=== PATIENT | female | born 1995 | race Caucasian/White ===

== ENCOUNTER → 2018-04-16 | Outpatient (CLI) | payer OTHER ==
--- NOTE | 2018-04-16 14:32 | Diagnostic Imaging Report ---
INDICATION: Size dates discrepancy. TECHNIQUE: Multiple real-time grayscale images were obtained over the gravid uterus. COMPARISON: None. FINDINGS: There are no prior studies available for comparison. FINDINGS: There is a single live fetus in cephalic presentation. heart motion was noted and a rate of 132 BPM was recorded. There were no abnormalities identified but the fetus was difficult to evaluate as there is mild oligohydramnios. The amniotic fluid index is 6.7 cm (8 to 22 cm). The reason for the oligohydramnios is not certain. There is no obvious abnormality identified. The growth parameters average at 34 weeks 6 days +/-3.5 weeks. The placenta is posterior and there is no previa. IMPRESSION: 1. There is a near-term fetus in cephalic presentation. The EDC is May 15, 2018. 2. There were no obvious abnormalities identified. However, the evaluation of the fetus is limited due to the diminished amniotic fluid volume. The reason for the oligohydramnios is not certain. Biometrical measurements are as follows: Biparietal 8.87 cm, age 36 weeks 0 days. Head circumference 31.80 cm, age 35 weeks 6 days. Abdominal circumference 33.20 cm, age 37 weeks 1 days. Femur length 6.63 cm, age 34 weeks 1 days. Sonographic estimate age: 35 weeks 6 days. Sonographic estimated date of delivery: 05/15/18. Estimated Weight: 2847 gm (+/- 416 gm). LMP percentile: NA%. heart rate: 132 beats per minute. number: 1 of 1. Dictated by: Dictated on workstation # [id number]
== END ==
LOC: RAD 12:47
PROVIDERS: ATTEND Obstetrics & Gynecology
DX: O26.843 Uterine size-date discrepancy, third trimester (principal); Z3A.35 35 weeks gestation of pregnancy
CPT/HCPCS: 76805

== ENCOUNTER 2018-05-15 03:55 | Inpatient (IN) | payer OTHER ==
[2018-05-15] VITALS (59 sets, daily range): BP systolic 118–162; BP diastolic 68–91
[~2018-05-15] VITALS: Ht 176.5 cm; Wt 92.1 kg
[2018-05-15] MEDS: D5 LR IV SOLUTION 1,000 ML IV SCH ×3 (04:12→12:58)
[2018-05-15 04:23] LABS: COLOR,URINE AMBER; GLUCOSE, URINE (UA) NEGATIVE (NEGATIVE); KETONES,URINE 3+ (NEGATIVE); LEUKOCYTE ESTERASE ,URINE 3+ (NEGATIVE); NITRITE,URINE NEGATIVE (NEGATIVE); PH,URINE 6.5 (5-9); PROTEIN,URINE 2+ (NEGATIVE); UROBILINOGEN,URINE 4 MG/DL (NORMAL)
[2018-05-15 04:29] LABS: BASOPHILS % (AUTO) 0 % (0-10); EOSINOPHILS # (AUTO) 0.1 10^3/uL (0.0-0.3); EOSINOPHILS % (AUTO) 1 % (0-10); HEMATOCRIT 33 % (35-52); HEMOGLOBIN 11.9 G/DL (11.5-16.0); LYMPHOCYTES # (AUTO) 1.8 X 10^3 (1.0-4.0); LYMPHOCYTES % (AUTO) 15 % (12-44); MEAN CORPUSCULAR HEMOGLOBIN 31 PG (25-34); MEAN CORPUSCULAR HGB CONC 36 G/DL (32-36); MEAN CORPUSCULAR VOLUME 85 FL (80-99); MEAN PLATELET VOLUME 9.3 FL (7.4-10.4); MONOCYTES # (AUTO) 0.7 X 10^3 (0.0-1.0); MONOCYTES % (AUTO) 6 % (0-12); NEUTROPHILS # (AUTO) 9.3 X 10^3 (1.8-7.8); NEUTROPHILS % (AUTO) 78 % (42-75); PLATELET COUNT 433 10^3/uL (130-400); RED BLOOD COUNT 3.83 10^6/uL (4.35-5.85); RED CELL DISTRIBUTION WIDTH 13.1 % (10.0-14.5); WHITE BLOOD COUNT 11.9 10^3/uL (4.3-11.0)
[2018-05-15 04:32] LABS: BILIRUBIN,URINE 1+ (NEGATIVE)
[2018-05-15 04:33] LABS: CLARITY,URINE SLIGHTLY CLOUDY
[2018-05-15 04:35] LABS: AMPHETAMINE SCREEN, URINE NEGATIVE (NEGATIVE); BACTERIA,URINE MODERATE /HPF; BARBITURATE SCREEN URINE NEGATIVE (NEGATIVE); BENZODIAZEPINES SCREEN URINE NEGATIVE (NEGATIVE); CANNABINOID SCREEN, URINE NEGATIVE (NEGATIVE); COCAINE SCREEN URINE NEGATIVE (NEGATIVE); METHADONE STAT NEGATIVE (NEGATIVE); METHAMPHETAMINE SCREEN URINE S NEGATIVE (NEGATIVE); OPIATE SCREEN URINE NEGATIVE (NEGATIVE); OXYCODONE STAT NEGATIVE (NEGATIVE); PROPOXYPHENE STAT NEGATIVE (NEGATIVE); TRICYCLIC ANTIDEPRESSANTS SCRE NEGATIVE (NEGATIVE); WBC,URINE >100 /HPF
[2018-05-15 05:23] LABS: ALANINE AMINOTRANSFERASE 31 U/L (0-55); ALBUMIN 3.1 GM/DL (3.2-4.5); ALKALINE PHOSPHATASE 535 U/L (40-136); BILIRUBIN,TOTAL 1.6 MG/DL (0.1-1.0); BUN/CREATININE RATIO 9; CALCIUM 9.4 MG/DL (8.5-10.1); CARBON DIOXIDE 14 MMOL/L (21-32); CHLORIDE 108 MMOL/L (98-107); CREATININE SERUM 0.69 MG/DL (0.60-1.30); GFR ESTIMATED > 60; GLUCOSE 110 MG/DL (70-105); POTASSIUM 3.2 MMOL/L (3.6-5.0); SODIUM 136 MMOL/L (135-145); TOTAL PROTEIN 7.4 GM/DL (6.4-8.2)
[2018-05-15] MEDS ORDERED: BUTORPHANOL INJ 2 MG/ML (STADOL) VIAL ONE (05:52)
[2018-05-15] MEDS ORDERED: BUTORPHANOL INJ 2 MG/ML (STADOL) VIAL IV ONE (06:00)
[2018-05-15] MEDS: CATHETER FLUSH 10 ML SYR IV SCH (06:47)
[2018-05-15 07:47] LABS: INR 0.9 (0.8-1.4); PROTHROMBIN TIME PATIENT 12.5 SEC (12.2-14.7)
[2018-05-15] MEDS ORDERED: SUFENTA 0.6MCG/ML BUPIVA 0.125 100 ML ONE (08:19)
[2018-05-15] MEDS ORDERED: LIDOCAINE/EPI 2% 1:200,00 (XYLOCAINE) 10 ML VIAL ONE (08:20)
[2018-05-15] MEDS ORDERED: OXYTOCIN/NORMAL SALINE 500 ML IV ONE ×2 (08:20→14:30)
[2018-05-15] MEDS ORDERED: MINERAL OIL CONCENTRATE 99.9% 15 ML UDC ONE (08:21)
[2018-05-15] MEDS ORDERED: fentaNYL INJECTION 100 MCG/2 ML AMP ONE (08:22)
--- NOTE | 2018-05-15 08:42 | History & Physical-OB ---
OB - Chief Complaint & HPI Date/Time Date of Admission: Date of Admission: May 15, 2018 at 4:12 am Time Seen by Provider: 07:15 Chief Complaint/History OB-Reason for Admission/Chief: Onset of Labor Hx : 1 Hx Para: 0 Expected Date of Delivery: May 23, 2018 Gestational Age in Weeks: 38 Gestational Age in Days: 6 Admission Nurse Assessment Rev: Yes History of Labs A neg Antibody screen neg RI RPR NR HBsAg NR HIV NR GC neg GBS neg Progenity FFC DNA neg, Carrier screen neg Allergies and Home Medications Allergies Coded Allergies: neff (Verified Allergy, Unknown, 05/15/18) quetiapine (Verified Allergy, Unknown, 05/15/18) Home Medications No Active Prescriptions or Reported Meds Patient Home Medication List Home Medication List Reviewed: Yes OB - History Hx of Present Care: Yes Ultrasounds: Normal mid trimester US Obstetrical Complications: None Medical Complications: None Other Concerns: Late transfer of care Obstetrical History Hx : 1 Hx Para: 0 Hx Total # of Abortions (Spona: 0 Delivery History Adverse Rxn to Tranfusion: No (no blood transfusions) Patient Past Medical History Depression/Anx PTSD Eating disorder Social History/Family History Recent Infectious Disease Expo: No Alcohol Use: Denies Use Recreational Drug Use: No OB - Admission Exam Physical Exam Vitals: Vital Signs 05/15/18 04:05 Temp 97.3 Pulse 86 Resp 20 B/P (MAP) 130/83 (99) HEENT: NCAT Heart: Rhythm Normal Lungs: Clear Abdomen: Gravid Extremities: Normal Reflexes: Normal Cervical Dilatation: 4cm Effacement: 75% Station: -1 Membranes: Intact Heart Rate: 130's Accelerations: Accelerations Present Decelerations: No Decelerations Short Term Variability: Present Bottle Caser Variability: Average (6-25) Contractions on Admission: < 5 Minutes Apart Intensity: Firm Labs Laboratory Tests Test 05/15/18 04:15 05/15/18 05:45 05/15/18 07:30 Range/Units White Blood Count 11.9 H 4.3-11.0 10^3/uL Red Blood Count 3.83 L 4.35-5.85 10^6/uL Hemoglobin 11.9 11.5-16.0 G/DL Hematocrit 33 L 35-52 % Mean Corpuscular Volume 85 80-99 FL Mean Corpuscular Hemoglobin 31 25-34 PG Mean Corpuscular Hemoglobin Concent 36 32-36 G/DL Red Cell Distribution Width 13.1 10.0-14.5 % Platelet Count 433 H 130-400 10^3/uL Mean Platelet Volume 9.3 7.4-10.4 FL Neutrophils (%) (Auto) 78 H 42-75 % Lymphocytes (%) (Auto) 15 12-44 % Monocytes (%) (Auto) 6 0-12 % Eosinophils (%) (Auto) 1 0-10 % Basophils (%) (Auto) 0 0-10 % Neutrophils # (Auto) 9.3 H 1.8-7.8 X 10^3 Lymphocytes # (Auto) 1.8 1.0-4.0 X 10^3 Monocytes # (Auto) 0.7 0.0-1.0 X 10^3 Eosinophils # (Auto) 0.1 0.0-0.3 10^3/uL Basophils # (Auto) 0.0 0.0-0.1 10^3/uL Urine Color MELISSA H Urine Clarity SLIGHTLY CLOUDY Urine pH 6.5 5-9 Urine Specific [place] 1.015 L 1.016-1.022 Urine Protein 2+ H NEGATIVE Urine Glucose (UA) NEGATIVE NEGATIVE Urine Ketones 3+ H NEGATIVE Urine Nitrite NEGATIVE NEGATIVE Urine Bilirubin 1+ H NEGATIVE Urine Urobilinogen 4 H NORMAL MG/DL Urine Leukocyte Esterase 3+ H NEGATIVE Urine RBC (Auto) 4+ H NEGATIVE Urine RBC 5-10 H /HPF Urine WBC >100 H /HPF Urine Squamous Epithelial Cells 5-10 /HPF Urine Crystals NONE /LPF Urine Bacteria MODERATE H /HPF Urine Casts NONE /LPF Urine Mucus MODERATE H /LPF Urine Culture Indicated YES Sodium Level 136 135-145 MMOL/L Potassium Level 3.2 L 3.6-5.0 MMOL/L Chloride Level 108 H 98-107 MMOL/L Carbon Dioxide Level 14 L 21-32 MMOL/L Anion Gap 14 5-14 MMOL/L Blood Urea Nitrogen 6 L 7-18 MG/DL Creatinine 0.69 0.60-1.30 MG/DL Estimat Glomerular Filtration Rate > 60 BUN/Creatinine Ratio 9 Glucose Level 110 H 70-105 MG/DL Calcium Level 9.4 8.5-10.1 MG/DL Total Bilirubin 1.6 H 0.1-1.0 MG/DL Aspartate Amino Transf (AST/SGOT) 30 5-34 U/L Alanine Aminotransferase (ALT/SGPT) 31 0-55 U/L Alkaline Phosphatase 535 H 40-136 U/L Total Protein 7.4 6.4-8.2 GM/DL Albumin 3.1 L 3.2-4.5 GM/DL Urine Opiates Screen NEGATIVE NEGATIVE Urine Oxycodone Screen NEGATIVE NEGATIVE Urine Methadone Screen NEGATIVE NEGATIVE Urine Propoxyphene Screen NEGATIVE NEGATIVE Urine Barbiturates Screen NEGATIVE NEGATIVE Ur Tricyclic Antidepressants Screen NEGATIVE NEGATIVE Urine Phencyclidine Screen NEGATIVE NEGATIVE Urine Amphetamines Screen NEGATIVE NEGATIVE Urine Methamphetamines Screen NEGATIVE NEGATIVE Urine Benzodiazepines Screen NEGATIVE NEGATIVE Urine Cocaine Screen NEGATIVE NEGATIVE Urine Cannabinoids Screen NEGATIVE NEGATIVE Prothrombin Time 12.5 12.2-14.7 SEC INR Comment 0.9 0.8-1.4 OB - Assessment/Plan/Diagnosis Assessment Assessment: active labor Admission Dx 23 yo @ 38.6 Active labor GBS neg Late transfer of care Admission Status: Inpatient Order (span 2 midnights) Reason for Inpatient Admission: Active labor Plan Plan: Expectant Management Other Plan Patient and friend today give a history of "hemophilia", however records and carrier screening are reviewed without any mention of this in the past. Patient relates today that she was told by her mother when she was younger, but was also told that she may "grow out of it." MARY KAUFMAN DO May 15, 2018 8:42 am
[2018-05-15] MEDS ORDERED: LACTATED RINGERS 1,000 ML IV ONE ×2 (09:02)
[2018-05-15] MEDS ORDERED: LIDOCAINE PF 2% 5 ML (XYLOCAINE) VIAL ONE ×2 (09:05→12:11)
[2018-05-15] MEDS ORDERED: BUPIVACAINE 0.25% 30 ML (SENSORCAINE) VIAL ONE ×2 (09:05→12:11)
[2018-05-15] MEDS ORDERED: NALOXONE 0.4 MG/ML 1 ML (NARCAN) VIAL IV PRN (09:15)
[2018-05-15] MEDS ORDERED: ONDANSETRON 4 MG/2 ML (SDV) Z0FRAN IV PRN (09:15)
[2018-05-15] MEDS ORDERED: EPIDURAL (SUFENTA 0.6MCG/ML BUPIVA 0.125%) 100 ML BAG EPI PRN (09:15)
[2018-05-15] MEDS ORDERED: LIDOCAINE/EPI 2% 1:200,00 (XYLOCAINE) 10 ML VIAL INJ ONE (13:30)
[2018-05-15] MEDS: OXYTOCIN/NORMAL SALINE 500 ML IV SCH ×2 (13:58→14:32)
[2018-05-15] MEDS ORDERED: METHYLERGONOVINE 0.2 MG/ML (METHERGINE) AMP ONE (14:00)
[2018-05-15] MEDS ORDERED: IBUPROFEN 600 MG (MOTRIN) TAB PO ONE (14:44)
[2018-05-15] MEDS ORDERED: DIBUCAINE (NUPERCAINAL) 1% OINT 30 GM TOP PRN (14:45)
[2018-05-15] MEDS ORDERED: IBUPROFEN 600 MG (MOTRIN) TAB PO SCH (14:45)
[2018-05-15] MEDS ORDERED: HYDROcodone/APAP 5 MG/325 MG (LORTAB) TAB PO PRN (14:45)
[2018-05-15] MEDS ORDERED: WITCH HAZEL(TUCKS) 40 EA JAR TOP PRN (14:45)
[2018-05-15] MEDS ORDERED: MEASLES,MUMPS,RUBELLA 1 EA INJ SQ ONE (14:45)
[2018-05-15] MEDS ORDERED: BENZOCAINE/MENTHOL (DERMOPLAST) 56 ML CAN TP PRN (14:45)
[2018-05-15] MEDS ORDERED: TETANUS,DIPTH,PERTUSS P/F (BOOSTRIX) 0.5 ML VIAL IM ONE (14:45)
[2018-05-15] MEDS ORDERED: IBUP-844 PO (14:47)
[2018-05-15] MEDS ORDERED: DIBU30OI TOP (14:47)
[2018-05-15] MEDS ORDERED: FERR325T18 PO (14:47)
[2018-05-15] MEDS ORDERED: DOCU100C37 PO (14:47)
[2018-05-15] MEDS ORDERED: ACHD5005 PO (14:47)
--- NOTE | 2018-05-15 14:47 | Discharge Inst-Women's Service ---
Discharge Inst-Women's Serv Depart Medication/Instructions New, Converted or Re-Newed RX: RX on Chart Consults/Follow Up Additional Follow Up: Yes Orders/Referrals Dr. Haji in 6 weeks Activity Activity: Activity as Tolerated Driving Instructions: No Driving for 1 Week NO SMOKING: NO SMOKING Nothing Inside Vagina: No Douching, No [place], No Tampons Diet Discharge Diet: No Restrictions Symptoms to Report to : Bleeding Excessive, Pain Increased, Fever Over 101 Degrees F, Vaginal Bleeding Increase, Questions/Concerns For Any Problems or Questions: Contact Your Physician Skin/Wound Care Bathing Instructions: Shower (or sitz baths x 2 weeks) MARY KAUFMAN DO May 15, 2018 2:47 pm
[2018-05-15] MEDS ORDERED: METHYLERGONOVINE 0.2 MG/ML (METHERGINE) AMP IM ONE (15:15)
[2018-05-15] MEDS ORDERED: BENZOCAINE/MENTHOL (DERMOPLAST) 56 ML CAN TP ONE (15:28)
[2018-05-15] MEDS ORDERED: DIBUCAINE (NUPERCAINAL) 1% OINT 30 GM ONE (15:29)
[2018-05-15] MEDS ORDERED: WITCH HAZEL(TUCKS) 40 EA JAR ONE (15:29)
--- NOTE | 2018-05-15 17:20 | OB Labor & Delivery Record ---
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 Variability: Average (6-10) Short Term Variability: Present Presentation: Vertex Vital Signs VS - Last 72 Hours, by Label 05/15/18 05/15/18 05/15/18 05/15/18 04:05 05:35 07:30 08:00 Temp 97.3 97.4 98.1 Pulse 86 80 69 82 Resp 20 18 18 18 B/P (MAP) 130/83 (99) 128/80 (96) 139/85 (103) Pulse Ox 98 O2 Delivery Room Air Room Air 05/15/18 05/15/18 05/15/18 05/15/18 08:30 08:41 08:44 08:45 Pulse 82 79 69 80 Resp 18 18 18 18 B/P (MAP) 127/76 (93) 137/88 (104) 132/82 (99) 130/79 (96) Pulse Ox 99 98 99 97 O2 Delivery Room Air Room Air Room Air Room Air 05/15/18 05/15/18 05/15/18 05/15/18 08:50 08:53 08:56 09:00 Pulse 75 77 63 67 Resp 18 18 18 18 B/P (MAP) 121/72 (88) 128/75 (92) 124/80 (95) 126/81 (96) Pulse Ox 100 100 100 100 O2 Delivery Non Rebreather Non Rebreather Non Rebreather Non Rebreather O2 Flow Rate 15.00 15.00 15.00 15.00 05/15/18 05/15/18 05/15/18 05/15/18 09:02 09:05 09:08 09:11 Pulse 69 72 83 69 Resp 18 18 18 18 B/P (MAP) 127/86 (100) 127/71 (89) 132/72 (92) 128/71 (90) Pulse Ox 100 100 100 100 O2 Delivery Non Rebreather Non Rebreather Non Rebreather Non Rebreather O2 Flow Rate 15.00 15.00 15.00 15.00 05/15/18 05/15/18 05/15/18 05/15/18 09:15 09:17 09:20 09:23 Pulse 71 65 78 71 Resp 18 18 18 18 B/P (MAP) 127/73 (91) 134/80 (98) 128/79 (95) 127/77 (94) Pulse Ox 100 100 100 100 O2 Delivery Non Rebreather Non Rebreather Non Rebreather Non Rebreather O2 Flow Rate 15.00 15.00 15.00 15.00 05/15/18 05/15/18 05/15/18 05/15/18 09:26 09:30 09:33 09:36 Pulse 82 77 75 67 Resp 18 18 18 18 B/P (MAP) 127/79 (95) 134/81 (98) 128/76 (93) 125/73 (90) Pulse Ox 100 100 100 100 O2 Delivery Non Rebreather Non Rebreather Non Rebreather Non Rebreather O2 Flow Rate 15.00 15.00 15.00 15.00 05/15/18 05/15/18 05/15/18 05/15/18 09:38 09:41 09:45 10:00 Temp 98.1 Pulse 68 68 70 81 Resp 18 18 18 18 B/P (MAP) 128/72 (90) 127/79 (95) 125/78 (94) 125/81 (96) Pulse Ox 100 100 100 99 O2 Delivery Non Rebreather Non Rebreather Non Rebreather Non Rebreather O2 Flow Rate 15.00 15.00 15.00 15.00 Rupture of Membranes Spontaneous Ruture of Membrane: Yes Amniotic Membrane Rupture Time: 0200 Amniotic Membrane Fluid Desc.: Clear Amniotic Fluid Membrane Tests: Nitrazine Positive Vaginal Bleeding Description: Normal Show Induction/Anesthesia Epidural Cath Placement - Time: 0840 Progress/Notes Patient progressed without augmentation. Epidural was received for analgesia. L&D Stage2 Stage Two Stage II Date: May 15, 2018 Monitors and Tracing Monitor Mode: External Heart Rate: 110 Monitor Accelerations: Uniform Monitor Decelerations: Variable Snf Variability: Average (6-10) Short Term Variability: Present Position: Right Occiput Anterior Presentation: Vertex Cord Descript/Complications Cord Vessel Description: 3 Vessels Delivery Type Anterior Shoulder: Right Episiotomy/Perineal Laceration Laceraction(s)/Extensions: Yes Episiotomy Description: Right Mediolateral Degree (describe repair) RML repaired in usual fashion using 3-0 and 2-0 vicryl suture Condition of Infant Delivery 1 minute Comment: 8 5 minute Comment: 9 Condition of Infant Condition of : Living Exam: No Observed Abnormalities Live male infant weight pending Resuscitation Resuscitation: N/A - Spontaneous Resp L&D Stage3 Stage Three Stage III Date: May 15, 2018 Pictocin Pitocin Administration Comment: 30 mu wide open at delivery of placeta Placenta Delivery Placenta Delivery: Spontaneous Delivery Summary Summary Estimated blood loss (mL): 400 Attending at delivery: Mary Kaufman DO Condition of Delivery Examined: Cervix Examined, Uterus Explored Post Hemorrhage: No Condition of Mother stable Condition of Infant (s) stable MARY KAUFMAN DO May 15, 2018 5:20 pm
[2018-05-15] MEDS ORDERED: IBUP100O30 PO (18:26)
[2018-05-15] MEDS ORDERED: ACET118E PO (18:26)
[2018-05-15] MEDS ORDERED: IBUPROFEN SUSP 100MG/5ML (MOTRIN) UDC PO PRN (18:30)
[2018-05-15] MEDS ORDERED: APAP W/CODEINE ELIXIR 12.5 ML (TYLENOL W/CODEINE) PO PRN (18:30)
[2018-05-15] MEDS ORDERED: CATHETER FLUSH 10 ML SYR IV SCH (22:00)
[2018-05-15] MEDS: DOCUSATE SODIUM 100 MG (COLACE) CAP PO SCH (23:10)
[2018-05-16] MEDS: CATHETER FLUSH 10 ML SYR IV SCH
[2018-05-16 00:11] VITALS: BP 125/68
[2018-05-16 04:00] VITALS: BP 104/64
[2018-05-16 05:35] LABS: BASOPHILS % (AUTO) 0 % (0-10); EOSINOPHILS % (AUTO) 0 % (0-10); HEMATOCRIT 24 % (35-52); HEMOGLOBIN 8.3 G/DL (11.5-16.0); LYMPHOCYTES # (AUTO) 1.8 X 10^3 (1.0-4.0); LYMPHOCYTES % (AUTO) 12 % (12-44); MEAN CORPUSCULAR HEMOGLOBIN 30 PG (25-34); MEAN CORPUSCULAR HGB CONC 34 G/DL (32-36); MEAN CORPUSCULAR VOLUME 88 FL (80-99); MONOCYTES # (AUTO) 1.3 X 10^3 (0.0-1.0); MONOCYTES % (AUTO) 8 % (0-12); NEUTROPHILS # (AUTO) 12.5 X 10^3 (1.8-7.8); NEUTROPHILS % (AUTO) 80 % (42-75); PLATELET COUNT 351 10^3/uL (130-400); RED BLOOD COUNT 2.74 10^6/uL (4.35-5.85); RED CELL DISTRIBUTION WIDTH 13.6 % (10.0-14.5); WHITE BLOOD COUNT 15.7 10^3/uL (4.3-11.0)
--- NOTE | 2018-05-16 07:24 | Anesthesia-Regional Post-Op ---
Regional Patient Condition Mental Status: Alert, Oriented x3 Circulation: Same as Pre-Op Headache: Absent Sensation: Full Recovery Motor Block: Absent Post Op Complications Complications None Follow Up Care/Instructions Patient Instructions None needed. Anesthesia/Patient Condition Patient is doing well, no complaints, stable vital signs, no apparent adverse anesthesia problems. No complications reported per nursing. HAYDEE CALDERON CRNA May 16, 2018 07:24
[2018-05-16 08:00] VITALS: BP 89/53
[2018-05-16] MEDS: FERROUS SULF 325 MG (IRON) TAB PO SCH (08:00)
--- NOTE | 2018-05-16 08:32 | Postpartum Progress Note ---
Note Note Day # 1 Subjective: Patient is without complaints. Ambulating, voiding. Tolerating a regular diet without nausea or vomiting. Normal lochia. Pain is well controlled with oral pain medications. Objective: Vital Sign - Last 24 Hours 05/15/18 05/15/18 05/15/18 05/15/18 08:41 08:44 08:45 08:50 Pulse 79 69 80 75 Resp 18 18 18 18 B/P (MAP) 137/88 (104) 132/82 (99) 130/79 (96) 121/72 (88) Pulse Ox 98 99 97 100 O2 Delivery Room Air Room Air Room Air Non Rebreather O2 Flow Rate 15.00 05/15/18 05/15/18 05/15/18 05/15/18 08:53 08:56 09:00 09:02 Pulse 77 63 67 69 Resp 18 18 18 18 B/P (MAP) 128/75 (92) 124/80 (95) 126/81 (96) 127/86 (100) Pulse Ox 100 100 100 100 O2 Delivery Non Rebreather Non Rebreather Non Rebreather Non Rebreather O2 Flow Rate 15.00 15.00 15.00 15.00 05/15/18 05/15/18 05/15/18 05/15/18 09:05 09:08 09:11 09:15 Pulse 72 83 69 71 Resp 18 18 18 18 B/P (MAP) 127/71 (89) 132/72 (92) 128/71 (90) 127/73 (91) Pulse Ox 100 100 100 100 O2 Delivery Non Rebreather Non Rebreather Non Rebreather Non Rebreather O2 Flow Rate 15.00 15.00 15.00 15.00 05/15/18 05/15/18 05/15/18 05/15/18 09:17 09:20 09:23 09:26 Pulse 65 78 71 82 Resp 18 18 18 18 B/P (MAP) 134/80 (98) 128/79 (95) 127/77 (94) 127/79 (95) Pulse Ox 100 100 100 100 O2 Delivery Non Rebreather Non Rebreather Non Rebreather Non Rebreather O2 Flow Rate 15.00 15.00 15.00 15.00 6/28/18 6/28/18 6/28/18 6/28/18 09:30 09:33 09:36 09:38 Pulse 77 75 67 68 Resp 18 18 18 18 B/P (MAP) 134/81 (98) 128/76 (93) 125/73 (90) 128/72 (90) Pulse Ox 100 100 100 100 O2 Delivery Non Rebreather Non Rebreather Non Rebreather Non Rebreather O2 Flow Rate 15.00 15.00 15.00 15.00 05/15/18 05/15/18 05/15/18 05/15/18 09:41 09:45 10:00 10:15 Temp 98.1 Pulse 68 70 81 71 Resp 18 18 18 18 B/P (MAP) 127/79 (95) 125/78 (94) 125/81 (96) 126/73 (90) Pulse Ox 100 100 99 98 O2 Delivery Non Rebreather Non Rebreather Non Rebreather Non Rebreather O2 Flow Rate 15.00 15.00 15.00 15.00 05/15/18 05/15/18 05/15/18 05/15/18 10:30 10:45 11:00 11:15 Temp 98.3 Pulse 76 72 84 84 Resp 18 18 18 18 B/P (MAP) 132/81 (98) 124/76 (92) 132/76 (94) 131/78 (95) Pulse Ox 100 99 99 99 O2 Delivery Non Rebreather Non Rebreather Non Rebreather Non Rebreather O2 Flow Rate 15.00 15.00 15.00 15.00 05/15/18 05/15/18 05/15/18 05/15/18 11:31 11:37 11:42 11:47 Pulse 67 62 61 65 Resp 18 18 18 20 B/P (MAP) 121/76 (91) 123/75 (91) 124/78 (93) 119/78 (92) Pulse Ox 98 99 99 99 O2 Delivery Room Air Room Air Room Air Room Air 05/15/18 05/15/18 05/15/18 05/15/18 11:52 11:57 12:15 12:22 Pulse 65 71 61 62 Resp 20 20 20 20 B/P (MAP) 124/81 (95) 125/83 (97) 136/85 (102) 131/83 (99) Pulse Ox 97 100 O2 Delivery Room Air Room Air Room Air Room Air 6/05/15/18 05/15/18 05/15/18 12:29 12:32 12:38 12:42 Pulse 62 60 72 74 Resp 20 18 18 18 B/P (MAP) 134/87 (103) 137/91 (106) 162/89 (113) 151/89 (109) O2 Delivery Room Air Room Air Room Air Room Air 05/15/18 05/15/18 05/15/18 05/15/18 12:47 13:00 13:15 13:33 Temp 98.1 Pulse 67 65 68 67 Resp 18 18 18 18 B/P (MAP) 139/73 (95) 133/73 (93) 132/85 (101) 133/91 (105) O2 Delivery Room Air Room Air Room Air Room Air 05/15/18 05/15/18 05/15/18 05/15/18 13:52 14:00 14:02 14:20 Temp 98.9 98.2 Pulse 77 86 81 70 Resp 18 18 18 18 B/P (MAP) 119/68 (85) 123/69 (87) 120/68 (85) 126/72 (90) O2 Delivery Room Air Room Air Room Air Room Air 05/15/18 05/15/18 05/15/18 05/15/18 14:33 14:48 15:03 15:18 Pulse 83 76 85 85 Resp 18 18 18 18 B/P (MAP) 127/72 (90) 128/76 (93) 133/81 (98) 121/81 (94) O2 Delivery Room Air Room Air Room Air Room Air 05/15/18 05/15/18 05/15/18 05/16/18 15:33 16:00 19:30 00:11 Temp 98.2 98.2 98.7 Pulse 79 79 83 75 Resp 18 16 17 16 B/P (MAP) 121/81 (94) 118/76 (90) 123/74 (90) 125/68 (87) Pulse Ox 100 96 97 O2 Delivery Room Air Room Air Room Air Room Air 05/16/18 05/16/18 04:00 08:00 Temp 97.9 96.6 Pulse 79 60 Resp 18 20 B/P (MAP) 104/64 (77) 89/53 (65) Pulse Ox 97 97 O2 Delivery Room Air Room Air Intake and Output 6/05/15/18 05/16/18 15:00 23:00 07:00 Intake Total 3200 ml 1000 ml Balance 3200 ml 1000 ml Physical Exam: General - Alert and oriented, no apparent distress Abdomen - Soft, appropriately tender to palpation, non-distended, fundus firm at umbilicus Extremities - no edema, negative Mariama's bilaterally Assessment: PPD 1 NVD Acute blood loss anemia Plan: Routine care. Encourage breast feeding. Encourage ambulation. Ferrous sulfate supplementation. Plan for discharge tomorrow Vitals - Labs Vital Signs - I&O Vital Signs Date Time Temp Pulse Resp B/P (MAP) Pulse Ox O2 Delivery O2 Flow Rate FiO2 05/16/18 08:00 96.6 60 20 89/53 (65) 97 Room Air 05/16/18 04:00 97.9 79 18 104/64 (77) 97 Room Air 05/16/18 00:11 98.7 75 16 125/68 (87) 97 Room Air 05/15/18 19:30 98.2 83 17 123/74 (90) 96 Room Air 05/15/18 16:00 98.2 79 16 118/76 (90) 100 Room Air 05/15/18 15:33 79 18 121/81 (94) Room Air 05/15/18 15:18 85 18 121/81 (94) Room Air 05/15/18 15:03 85 18 133/81 (98) Room Air 05/15/18 14:48 76 18 128/76 (93) Room Air 05/15/18 14:33 83 18 127/72 (90) Room Air 05/15/18 14:20 98.2 70 18 126/72 (90) Room Air 05/15/18 14:02 81 18 120/68 (85) Room Air 05/15/18 14:00 86 18 123/69 (87) Room Air 05/15/18 13:52 98.9 77 18 119/68 (85) Room Air 05/15/18 13:33 67 18 133/91 (105) Room Air 05/15/18 13:15 68 18 132/85 (101) Room Air 05/15/18 13:00 98.1 65 18 133/73 (93) Room Air 05/15/18 12:47 67 18 139/73 (95) Room Air 05/15/18 12:42 74 18 151/89 (109) Room Air 05/15/18 12:38 72 18 162/89 (113) Room Air 05/15/18 12:32 60 18 137/91 (106) Room Air 05/15/18 12:29 62 20 134/87 (103) Room Air 05/15/18 12:22 62 20 131/83 (99) Room Air 05/15/18 12:15 61 20 136/85 (102) Room Air 05/15/18 11:57 71 20 125/83 (97) 100 Room Air 05/15/18 11:52 65 20 124/81 (95) 97 Room Air 05/15/18 11:47 65 20 119/78 (92) 99 Room Air 05/15/18 11:42 61 18 124/78 (93) 99 Room Air 05/15/18 11:37 62 18 123/75 (91) 99 Room Air 05/15/18 11:31 67 18 121/76 (91) 98 Room Air 05/15/18 11:15 84 18 131/78 (95) 99 Non Rebreather 15.00 05/15/18 11:00 98.3 84 18 132/76 (94) 99 Non Rebreather 15.00 05/15/18 10:45 72 18 124/76 (92) 99 Non Rebreather 15.00 05/15/18 10:30 76 18 132/81 (98) 100 Non Rebreather 15.00 05/15/18 10:15 71 18 126/73 (90) 98 Non Rebreather 15.00 05/15/18 10:00 81 18 125/81 (96) 99 Non Rebreather 15.00 05/15/18 09:45 98.1 70 18 125/78 (94) 100 Non Rebreather 15.00 05/15/18 09:41 68 18 127/79 (95) 100 Non Rebreather 15.00 05/15/18 09:38 68 18 128/72 (90) 100 Non Rebreather 15.00 05/15/18 09:36 67 18 125/73 (90) 100 Non Rebreather 15.00 05/15/18 09:33 75 18 128/76 (93) 100 Non Rebreather 15.00 05/15/18 09:30 77 18 134/81 (98) 100 Non Rebreather 15.00 05/15/18 09:26 82 18 127/79 (95) 100 Non Rebreather 15.00 05/15/18 09:23 71 18 127/77 (94) 100 Non Rebreather 15.00 05/15/18 09:20 78 18 128/79 (95) 100 Non Rebreather 15.00 05/15/18 09:17 65 18 134/80 (98) 100 Non Rebreather 15.00 05/15/18 09:15 71 18 127/73 (91) 100 Non Rebreather 15.00 05/15/18 09:11 69 18 128/71 (90) 100 Non Rebreather 15.00 05/15/18 09:08 83 18 132/72 (92) 100 Non Rebreather 15.00 05/15/18 09:05 72 18 127/71 (89) 100 Non Rebreather 15.00 05/15/18 09:02 69 18 127/86 (100) 100 Non Rebreather 15.00 05/15/18 09:00 67 18 126/81 (96) 100 Non Rebreather 15.00 05/15/18 08:56 63 18 124/80 (95) 100 Non Rebreather 15.00 05/15/18 08:53 77 18 128/75 (92) 100 Non Rebreather 15.00 05/15/18 08:50 75 18 121/72 (88) 100 Non Rebreather 15.00 05/15/18 08:45 80 18 130/79 (96) 97 Room Air 05/15/18 08:44 69 18 132/82 (99) 99 Room Air 05/15/18 08:41 79 18 137/88 (104) 98 Room Air I & O 05/16/18 07:00 Intake Total 4200 ml Balance 4200 ml Labs Laboratory Tests 05/16/18 05:30: White Blood Count 15.7H, Red Blood Count 2.74L, Hemoglobin 8.3#L, Hematocrit 24L , Mean Corpuscular Volume 88, Mean Corpuscular Hemoglobin 30, Mean Corpuscular Hemoglobin Concent 34, Red Cell Distribution Width 13.6, Platelet Count 351, Mean Platelet Volume 9.0, Neutrophils (%) (Auto) 80H, Lymphocytes (%) (Auto) 12 , Monocytes (%) (Auto) 8, Eosinophils (%) (Auto) 0, Basophils (%) (Auto) 0, Neutrophils # (Auto) 12.5H, Lymphocytes # (Auto) 1.8, Monocytes # (Auto) 1.3H, Eosinophils # (Auto) 0.0, Basophils # (Auto) 0.0 Microbiology 05/15/18 Urine Culture - Preliminary, Resulted Sent To MARY Cleaning DO May 16, 2018 8:32 am
[2018-05-16] MEDS: DOCUSATE SODIUM 100 MG (COLACE) CAP PO SCH ×2 (09:05→21:41)
[2018-05-16] MEDS: PRENATAL VITAMIN 1 EA TAB PO SCH (09:06)
[2018-05-16 12:00] VITALS: BP 104/60
[2018-05-16 16:00] VITALS: BP 110/70
[2018-05-16] MEDS ORDERED: RELABEL FOR HOME USE MC SCH (17:30)
[2018-05-16 20:00] VITALS: BP 115/68
[2018-05-16] MEDS ORDERED: CEPHALEXIN 250 MG (KEFLEX) CAP PO SCH (21:00)
[2018-05-16] MEDS: CEPHALEXIN 250 MG/5 ML 100 ML (KEFLEX) SUSP PO SCH (21:30)
[2018-05-17 02:31] VITALS: BP 96/52
--- NOTE | 2018-05-17 07:45 | Progress Note-Standard ---
Standard Progress Note Progress Notes/Assess & Plan Date Seen by Provider: May 17, 2018 Time Seen by Provider: 07:44 Progress/Assessment & Plan This patient is without complaint. She is ambulating, voiding, tolerating by mouth well, has good pain control. Patient denies chest pain, denies shortness of breath, denies nausea vomiting, and denies headache. Patient is ready for discharge home. Vital Signs 05/15/18 05/17/18 11:15 02:31 Temp 97.6 Pulse 78 Resp 18 B/P (MAP) 96/52 (67) Pulse Ox 97 O2 Delivery Room Air O2 Flow Rate 15.00 Vital signs are stable. Patient afebrile. Fundus is firm below the umbilicus and nontender. Extremities show no clubbing cyanosis. There is no Homans sign. Assessment and plan day number 2 status post term spontaneous vaginal delivery doing well. Plan is for discharge home with follow-up in clinic. CRISTIAN CHAVEZ MD May 17, 2018 7:45 am
[2018-05-17 09:52] VITALS: BP 105/64
[2018-05-17] MEDS: CEPHALEXIN 250 MG/5 ML 100 ML (KEFLEX) SUSP PO SCH ×2 (09:53→13:20)
[2018-05-17] MEDS: PRENATAL VITAMIN 1 EA TAB PO SCH (12:13)
[2018-05-17] MEDS: FERROUS SULF 325 MG (IRON) TAB PO SCH (12:13)
[2018-05-17] MEDS: DOCUSATE SODIUM 100 MG (COLACE) CAP PO SCH (12:13)
[2018-05-17] MEDS ORDERED: CEPHALEXIN 250 MG/5 ML 100 ML (KEFLEX) SUSP PO SCH (13:30)
== END 2018-05-17 16:00 | disposition home or self-care (01) | DRG 775 ==
LOC: WSo 03:55 → LDRP 03:56 → WSo 04:12 → WS 15:30
PROVIDERS: ADMIT Obstetrics & Gynecology; ATTEND Obstetrics & Gynecology
PROC: 10E0XZZ Delivery of Products of Conception, External Approach (ICD-10-PCS; principal; 2018-05-15)
PROC: 0W8NXZZ Division of Female Perineum, External Approach (ICD-10-PCS; 2018-05-15)
DX: O99.343 Other mental disorders complicating pregnancy, third trimester (principal); F43.10 Post-traumatic stress disorder, unspecified; O90.81 Anemia of the puerperium; D62 Acute posthemorrhagic anemia; Z3A.38 38 weeks gestation of pregnancy; Z37.0 Single live birth
CPT/HCPCS: 36415; 80053; 80306; 81000; 82977; 83033; 85025; 85240; 85246; 85250; 85610; 86850; 86900; 86901; 87077; 87088; 87186; 88307; 99212